=== PATIENT | male | born 1955 | race Caucasian/White ===

== ENCOUNTER 2021-10-05 06:55 | Day surgery (SDC) | payer MEDICARE, OTHER ==
[2021-10-05] MEDS ORDERED: Depo-Medrol 40 MG/ML IM ONE (06:56)
[2021-10-05] MEDS ORDERED: BUPIVACAINE 0.5% VIAL IJ ONE (06:56)
[2021-10-05] MEDS ORDERED: DIPRIVAN 200 MG/20 ML IV ONE (08:25)
[2021-10-05] MEDS ORDERED: Lactated Ringers 1,000 ML IV ONE (08:50)
--- NOTE | 2021-10-05 10:19 | XRAY ---
Indication: Right SI joint injection. Intraoperative fluoroscopy provided for 13 seconds. 2 digital spot image submitted for interpretation demonstrates posterior needle tip projecting over the inferior right SI joint. Correlate with intraoperative findings/report.
--- NOTE | 2021-10-05 10:21 | XRAY ---
Indication: Right hip injection. Intraoperative fluoroscopy provided for 16 seconds. Single digital spot image obtained prone submitted for interpretation demonstrates needle tip projecting lateral to the right femur neck. Small amount of contrast injected for needle tip placement. Correlate with intraoperative findings/report.
--- NOTE | 2021-10-05 10:21 | XRAY ---
1 seconds fluoroscopy time in surgery for injection of the right SI joint.
--- NOTE | 2021-10-07 09:32 | XRAY ---
16 seconds fluoroscopy time in surgery for intra-articular injection of the right hip.
== END 2021-10-05 08:55 | disposition home or self-care (01) ==
LOC: SDC-PAIN 06:55
PROVIDERS: ATTEND Psychiatry & Neurology Pain Medicine
DX: M46.1 Sacroiliitis, not elsewhere classified (principal); M16.11 Unilateral primary osteoarthritis, right hip; I10 Essential (primary) hypertension; E11.9 Type 2 diabetes mellitus without complications; E78.5 Hyperlipidemia, unspecified; I25.10 Atherosclerotic heart disease of native coronary artery without angina pectoris; Z79.899 Other long term (current) drug therapy
CPT/HCPCS: 20610; 27096; 72020; 73501; 77002; 82947; G0260; J1030; J2704; Q9966

== ENCOUNTER 2022-03-16 07:02 | Day surgery (SDC) | payer MEDICARE, OTHER ==
[2022-03-16] MEDS ORDERED: Depo-Medrol 40 MG/ML IM ONE (07:03)
[2022-03-16] MEDS ORDERED: Marcaine Mpf 0.5% Vial 30 Ml IJ ONE (07:03)
[2022-03-16] MEDS ORDERED: DIPRIVAN 200 MG/20 ML IV ONE (08:43)
[2022-03-16] MEDS ORDERED: Lactated Ringers 1,000 ML IV ONE (09:01)
--- NOTE | 2022-03-16 10:13 | XRAY ---
Indication: Right SI joint and right hip injection. Intraoperative fluoroscopy provided for 28 seconds. 3 digital spot image obtained prone submitted for interpretation demonstrates posterior needle tip projecting over the inferior right SI joint. Second needle tip lateral to right femur neck with small amount of contrast injected for needle tip placement. Correlate with intraoperative findings/report.
--- NOTE | 2022-03-16 11:26 | XRAY ---
28 seconds of fluoroscopy was used in surgery for a right SI joint and right intra-articular hip injection.
== END 2022-03-16 09:04 | disposition home or self-care (01) ==
LOC: SDC-PAIN 07:02
PROVIDERS: ATTEND Psychiatry & Neurology Pain Medicine
DX: M46.1 Sacroiliitis, not elsewhere classified (principal); M16.11 Unilateral primary osteoarthritis, right hip; E11.9 Type 2 diabetes mellitus without complications; Z79.899 Other long term (current) drug therapy
CPT/HCPCS: 20610; 27096; 73502; 77002; 82947; G0260; J1030; J2704; Q9966